=== PATIENT | male | born 1955 | race Caucasian/White ===

== ENCOUNTER 2017-01-19 12:15 | Inpatient (IN) ==
[~2017-01-19 12:15] MED LIST: ASPIRIN PO STA; NITROGLYCERIN SL PRN
--- NOTE | 2017-01-19 12:34 | PROVIDER DOCUMENTATION ---
HPI-Respiratory General - General Stated Complaint: SOB, LUNG PAIN Time Seen by Provider: 01/19/17 12:24 Source: patient, EMS Allergies/Adverse Reactions: Patient Allergies Allergy/AdvReac Type Severity Reaction Status Date / Time codeine AdvReac Unknown Verified 01/19/17 13:19 Home Medications: Home Medication List Medication Instructions Recorded Confirmed Last Taken Type Eszopiclone [Lunesta] 2 mg PO DAILY 01/19/17 01/19/17 01/18/17 21:00 History - History of Present Illness-Resp Nature of Presenting Problem: Pt is a 61 yom who came to the ED via EMS with a cc of SOB and weakness. 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 Pt reports he has had a cold/coughing since Tuesday. pt reports today he got worse. Pt was dizzy and weak so he pulled over. Quality of Pain: reports: tightness Severity in ED: reports: mild Onset/Duration: reports: just prior to arrival Timing: reports: still present Exposure: reports: unknown cause Cough Quality/Degree: reports: mild Modifying Factors: improves with: coughing, oxygen Associated Symptoms: reports: cough, shortness of breath, short of breath Similar Symptoms Previously?: No Recently seen or treated by another doctor?: No Review of Systems - Adult - REVIEW OF SYSTEMS - ADULT Constitutional: denies: chills, fever Eyes: reports: no symptoms reported Ears, Nose, Mouth & Throat: reports: no symptoms reported Cardiovascular: reports: chest pain. denies: heart murmur, orthopnea Respiratory: reports: cough, shortness of breath, wheezing. denies: dyspnea on exertion, hemoptysis Gastrointestinal: denies: diarrhea, nausea, vomiting Genitourinary: reports: no symptoms reported Musculoskeletal: reports: no symptoms reported Integumentary: reports: no symptoms reported Neurological: reports: no symptoms reported Psychiatric: reports: no symptoms reported Endocrine: reports: no symptoms reported Hematologic/Lymphatic: reports: no symptoms reported Allergic/Immunologic: reports: no symptoms reported All Other Systems: Reviewed and Negative Past History - Adult - PAST MEDICAL HISTORY-ADULT Review of Records: reports: Old Records Reviewed, Nursing Assessment Review Major Childhood Illnesses: reports: denies history Cardiovascular: reports: denies history Respiratory: reports: denies history Gastrointestinal: reports: denies history Obstetrical/Gynecological: reports: denies history Genitourinary: reports: denies history Musculoskeletal: reports: denies history Neurological: reports: denies history Endocrine/Immune: reports: denies history Other Conditions: reports: denies history - IMMUNIZATION STATUS Childhood Immunizations: See Nurse Assessment Flu Vaccine: See Nurse Assessment - FAMILY HISTORY Family History: reviewed, not pertinent Physical Exam-General - PHYSICAL EXAM-ADULT Initial Vital Signs Reviewed: Yes - CONSTITUTIONAL General Appearance: alert, mild distress, anxious - EYES Eyes: PERRL/EOMI, pink conjunctivae - HEAD, EARS, NOSE, MOUTH & THROAT HENMT: normocephalic/atraumatic, moist mucous membranes, normal ENT inspection - NECK Neck: non-tender - RESPIRATORY Respiratory: rhonchi (right side), wheezing (left) - CARDIOVASCULAR Cardiovascular: tachycardia Progress - PLAN OF CARE/RESULTS Progress/Plan/Lab Results: Orders Category Date Time Status Cardiac Monitoring DIRECTED Care 01/19/17 12:15 Active Saline Loc NOW Care 01/19/17 12:15 Active CHEST-PORTABLE [RAD] Stat Exams 01/19/17 12:16 Ordered CBC WITH ELECTRONIC DIFF [HEME] Stat Lab 01/19/17 12:15 Uncollected CK PROFILE [SP CHEM] Stat Lab 01/19/17 12:15 Uncollected COMPREHENSIVE METABOLIC PANEL [CHEM] Stat Lab 01/19/17 12:15 Uncollected D-DIMER [CHEM] Stat Lab 01/19/17 12:15 Uncollected MAGNESIUM [CHEM] Stat Lab 01/19/17 12:15 Uncollected PRO B-NATRIURETIC PEPTIDE Stat Lab 01/19/17 12:15 Uncollected PROTIME WITH INR [COAG] Stat Lab 01/19/17 12:15 Uncollected PTT [COAG] Stat Lab 01/19/17 12:15 Uncollected TROPONIN T Stat Lab 01/19/17 12:15 Uncollected Aspirin Med 01/19/17 12:15 Discontinued 325 mg PO STAT STA Nitroglycerin Sl [Nitroglycerin] Med 01/19/17 12:15 Active 0.4 mg SL Q5M PRN PRN EKG [EKG] Stat Ther 01/19/17 12:15 Ordered Vital Signs - 24 hr 01/19/17 12:26 Temperature 98.6 F Pulse Rate 117 H Respiratory 32 H Rate Blood Pressure 134/101 O2 Sat by Pulse 99 Oximetry Laboratory Tests 01/19/17 01/19/17 01/19/17 11:44 12:17 12:17 WBC 5.44 RBC 4.83 Hgb 15.9 Hct 45.9 MCV 95.0 MCH 32.9 H MCHC 34.6 RDW Std Deviation 13.9 Plt Count 135 MPV 10.2 Immature Gran % (Auto) 0.0 Neut % (Auto) 62.5 Lymph % (Auto) 21.5 [place] % (Auto) 15.1 H Eos % (Auto) 0.7 Baso % (Auto) 0.2 Immature Gran # (Auto) 0.00 Neut # (Auto) 3.40 Lymph # (Auto) 1.17 L [place] # (Auto) 0.82 H Eos # (Auto) 0.04 Baso # (Auto) 0.01 Sodium 139 Potassium 3.6 Chloride 102 Carbon Dioxide 19 L Anion Gap 18 BUN 14 POC Venous BUN 16 Creatinine 0.8 POC Venous Creatinine 0.8 Estimated GFR/1.73 m2 > 60 BUN/Creatinine Ratio 18 Glucose 130 H Calculated Osmolality 280 Calcium 8.9 Magnesium 1.5 Total Bilirubin 0.67 AST 65 H ALT 29 Alkaline Phosphatase 46 Creatine Kinase 170 Total Protein 6.8 Albumin 3.8 Globulin 3.0 Albumin/Globulin Ratio 1.3 - REASSESSMENT Reassessment #1 Time Reassessed: 13:00 (heart rate after CT was 110. After using the restroom without oxygen his O2 sat when down to 90%) Reassessment #2 Time Reassessed: 13:06 (pt has a maclure rash on back, flushed face, tachycardia , mild distress.) - EKG 1 Time of EKG reading by physician:: 12:07 EKG Read and Signed by:: Romeo Verma EKG Interpretation (*Must complete 3 of following elements*): Abnormal Rate: 116 (left anterior fascicular block ) Rhythm: sinus tachycardia - XRAY 1 XRAY Study: Chest XRAY Interpretation: COPD changes - CT/MRI 1 CT Study: Angiogram (negative exam) - CONSULTS/PCP/HOSPITALIST Notification #1 *Consult/PCP/Hospitalist*: Dr. Marie Time Discussed: 13:54 Consult Disposition: Admit Departure - Departure Time of Disposition Order: 15:56 DIAGNOSIS: SOB (shortness of breath), HTN (hypertension) with goal to be determined Hyperactive airway disease Qualifiers: Asthma severity: unspecified severity Asthma complication type: uncomplicated Qualified Code(s): J45.909 - Unspecified asthma, uncomplicated Disposition: ADMITTED INPATIENT 09 Certified Medical Emergency: Emergent Condition: Stable Attestation - Scribe Verification/Attestation Scribe:: Alee Du Acting as Scribe for:: Romeo Verma Scribe documention review:: This chart was documented by a scribe and accurately reflects the service the provider performed and the decisions made by the provider.
[2017-01-19 12:44] LABS: MANUAL DIFF NEEDED? NO
[2017-01-19 12:50] LABS: BASO% 0.2 % (0.0-0.8); EOS# 0.04 X1000 (0.0-0.7); EOS% 0.7 % (0.0-10.0); HEMATOCRIT 45.9 % (42.0-52.0); HEMOGLOBIN 15.9 g/dL (14.0-18.0); LYMPH# 1.17 X1000 (1.2-3.4); LYMPH% 21.5 % (20.5-51.1); MCH 32.9 PG (27-31); MCHC 34.6 g/dL (33-37); MONO# 0.82 X1000 (0.11-0.59); MONO% 15.1 % (1.7-9.3); MPV 10.2 FL (7.4-10.4); NEUT% 62.5 % (42.2-75.2); PLT 135 X1000 (130-400); RBC 4.83 XMIL (4.7-6.1)
[2017-01-19 12:59] LABS: AGAP 18; ALBUMIN 3.8 g/dL (3.5-5.0); ALKALINE PHOSPHATASE 46 U/L (32-122); BUN 14 mg/dL (8-22); CALCIUM 8.9 mg/dL (8.8-10.2); CHLORIDE 102 mmol/L (98-107); CK PROFILE 170 U/L (24-204); COSMO 280; GOT 65 U/L (10-34); GPT 29 U/L (10-44); MAGNESIUM 1.5 mg/dL (1.5-2.7); POTASSIUM 3.6 mmol/L (3.5-5.1); SODIUM 139 mmol/L (136-145); TCO2 19 mmol/L (25-35); TOTAL BILIRUBIN 0.67 mg/dL (0.20-1.00); TOTAL PROTEIN 6.8 g/dL (6.3-8.3)
[2017-01-19 13:07] LABS: INR 0.96
[2017-01-19] MEDS ORDERED: ROCEPHIN 1 GM/NS 50 ML IV ONE (13:07)
[2017-01-19] MEDS ORDERED: SOLU-MEDROL IV ONE (13:07)
--- NOTE | 2017-01-19 13:33 | Diag Imaging Result Document ---
PROCEDURE NAME: ANGIOGRAM/PULMONARY ARTERIES - 01/19/2017 CT PULMONARY ANGIOGRAM WITH INTRAVENOUS CONTRAST: A CT dose reduction protocol was used. COMPARISON: None. FINDINGS: Axial CT images of the chest were obtained after administering intravenous contrast. Coronal MIP images were generated. There is no pulmonary embolism. Heart and great vessels are normal. No adenopathy. There is some plate-like atelectasis in the lung bases , otherwise the lungs are clear. Airways are patent. Bony structures are intact. IMPRESSION: Negative exam. [facility]
[2017-01-19] MEDS ORDERED: NORCO-7.5 PO ONE (13:34)
[2017-01-19] MEDS ORDERED: LASIX IV ONE (13:35)
[2017-01-19] MEDS ORDERED: BENADRYL IV ONE (13:53)
--- NOTE | 2017-01-19 14:15 | Diag Imaging Result Document ---
PROCEDURE NAME: CHEST-PORTABLE - 01/19/2017 PORTABLE CHEST X-RAY: COMPARISON: None. FINDINGS: The lungs are normally expanded and clear. Heart size and mediastinal contours are normal. No pneumothorax or pleural effusion. IMPRESSION: Negative exam.
[2017-01-19 14:18] LABS: ALLEN TEST YES; BE 0.1 mmoll (-3.0-3.0); BLOOD TYPE ARTERIAL; DRAW SITE R RADIAL; METHB 1.5 % (0.0-1.5); O2(CT) 21.8 mL/dL (15.0-23.0); PCO2(98.6) 26 mmHg (35-45); PO2(98.6) 78 mmHg (60-100); SAMPLE BLOOD; SAO2 99.2 % (95.0-100.0); THB 16.2 g/dL (11.5-17.4); pH(98.6) 7.52 (7.35-7.45)
[2017-01-19 14:20] LABS: MODALITY ROOM AIR
[2017-01-19] MEDS ORDERED: DUONEB (A & A) INH PRN (16:19)
[2017-01-19] MEDS ORDERED: NS 1,000 ML IV SCH (16:19)
--- NOTE | 2017-01-19 16:48 | HISTORY AND PHYSICAL ---
PRIMARY CARE PROVIDER: Dr. Wells in [place]. CHIEF COMPLAINT: Shortness of breath and weakness. HISTORY OF PRESENT ILLNESS: Mr. Fountain is a pleasant, 61-year-old male with no real medical history with the exception that he was admitted to [facility] [place] last month for severe pneumonia, at which time he was placed in the ICU, but was not intubated. He states since that time he has been having no real resolution in his cough and mild shortness of breath. 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 Then, he stopped at a clinic here in [place]. He was noted to be hypoxic and was sent here. He denies any chest pain, no recent fevers, no lower extremity edema. No orthopnea. He has had no overt chills. No expectoration with his cough. When he got to the ER, labs and diagnostics were done, and they were found to be unremarkable. A chest x-ray and CTA were also done, and no acute findings were found. On physical exam, he does have some wheezing, but no overt increased work of breathing. We are now going to admit him for further treatment and evaluation. PAST MEDICAL HISTORY: Recent admission for severe pneumonia at [place], [place]. Otherwise, no medical history. SURGICAL HISTORY: He has had inguinal hernia repair, left knee arthroscopy, UV 3 surgery for sleep apnea. 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 He is . He has a remote history of tobacco, alcohol, and drug use, but he no longer uses any of those substances. FAMILY HISTORY: Mother is still alive. She has a history of chronic respiratory illnesses and chronic back pain. Father from unknown causes. REVIEW OF SYSTEMS: A 14 point review of systems obtained and found to be negative with the exception of the HPI. ALLERGIES: Codeine. HOME MEDICATIONS: Lunesta 2 mg at night. PHYSICAL EXAMINATION: VITAL SIGNS: Blood pressure is 144/107, heart rate is 109, respiratory rate 21 and O2 saturation 97% on room air. Temperature is 98.6 degrees. GENERAL: This is a well-developed, well-nourished, male, lying in hospital bed in no acute distress. NEUROLOGIC: The patient is awake, alert, oriented. Follows commands without focal deficits. HEENT: Head is atraumatic and normocephalic. Pupils equal, round, reactive to light. Oral mucosa moist. NECK: Trachea midline. No JVD or carotid bruits. CHEST: Diminished at the bases with expiratory wheezes bilaterally. CV: Regular rate and rhythm. S1 and S2 is noted. No murmurs, gallops, clicks , or rubs. GI: Soft, nondistended, and nontender. Bowel sounds are positive. EXTREMITIES: Without edema, clubbing or cyanosis. Pulses are palpable bilaterally. DIAGNOSTIC DATA: Chest x-ray negative. CTA of the chest negative. WBC 5.44, hemoglobin 15.9, hematocrit 45.9, platelet count 135. PT 10.0, INR 0.96. ABG on room air reveals pH 7.52, PCO2 26, O2 78, bicarbonate 24.9. Sodium 139, potassium 3.6, chloride 102, CO2 19, anion gap 18. BUN 14, creatinine 0.8, glucose 130. AST 65, ALT 29, alkaline phosphatase 46. Troponin negative. ProBNP 53. ASSESSMENT AND PLAN: 1. Acute respiratory failure: At this time diagnosis is acute bronchitis. We will treat him with Zithromax and Rocephin, breathing treatments and intravenous steroids. We will take another chest x-ray and laboratories in the morning. We will add oxygen as needed, Tessalon Perles during the day, and light doses of codeine cough syrup at night. 2. Elevated D-dimer: Computed tomography angiography of the chest was negative for pulmonary embolus. Bilateral venous Dopplers have been obtained and are pending. 3. Will obtain records from [facility] [place] regarding his admission last month for pneumonia. 4. Deep vein thrombosis prophylaxis provided with Lovenox. Further recommendations to follow. Dictated by ISATU Mckinnon for Brett Marie MD Seen and examined patient. I have reviewed his labs and Imagining studies. I agree with the above evaluation Ass: 1- Subacute to chronic cough: etiology not apparently clear. CTA was unremarkable. I think there could be some element of allergic component. will get pulmonary medicine on board and continue with the plan outline above 2-Sinusitis. MTDD
[2017-01-19] MEDS: TESSALON PO PRN (16:50)
[2017-01-19 16:53] LABS: HEMOGLOBIN A1C 4.9 % (4.8-6.0)
[2017-01-19 17:14] LABS: FREE T4 1.08 ng/dL (0.93-1.70)
[2017-01-19] MEDS: DUONEB (A & A) INH SCH ×3 (17:51→23:11)
[2017-01-19] MEDS ORDERED: ZITHROMAX 500 MG/NS 250 ML IV SCH (18:00)
[2017-01-19] MEDS ORDERED: SOLU-MEDROL IV SCH (21:00)
[2017-01-19] MEDS ORDERED: AMBIEN PO SCH (21:00)
[2017-01-19] MEDS ORDERED: PREDNISONE PO ONE (22:13)
[2017-01-19] MEDS ORDERED: TUSSIONEX LIQUID PO ONE (22:15)
[2017-01-19] MEDS: SYMBICORT 160/4.5 MICROGM INHALER INH SCH (23:10)
[2017-01-20] MEDS: DUONEB (A & A) INH SCH ×3 (03:40→11:20)
--- NOTE | 2017-01-20 04:27 | CONSULTATION ---
DATE OF CONSULTATION: 01/19/2017 REQUESTING PHYSICIAN: Brett Marie MD REASON FOR CONSULTATION: Chronic cough. HISTORY OF PRESENT ILLNESS: Mr. Fountain is a 61-year-old white male, who smoked for approximately 15 years (he reported he smoked 1-2 cigarettes per day), who was admitted to an outside hospital approximately 1 month ago with a diagnosis of an atypical pneumonia. He did require 2 days in the intensive care unit before transferring to the floor. He did not require intubation or mechanical ventilation. 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 With the cough, he developed dyspnea and became flushed. He was brought to the emergency room by EMS. He was hypertensive and tachycardic upon presentation. He had a slight elevation in a D-dimer. Chest x-ray was performed which revealed no acute infiltrates. He underwent a CT pulmonary angiogram which revealed no definite pulmonary embolism, although the contrast timing was not perfect. He had minimal atelectasis in the bases but no significant pneumonia. The patient denies history of asthma. He does report approximately 5 years ago, he had severe seasonal allergies in the spring and the fall. He underwent allergy testing and was allergic to pine trees, elms, mold, ragweed, as well as others he cannot recall. He also reports significant difficulty with Mejia pear blooming. He is not aware that he is allergic to any animal dander. He has 2 dogs but no other pets. He does not have birds. He does not have any unusual hobbies. He had a slight increase in anion gap upon presentation. He denies taking aspirin or Tylenol. PAST MEDICAL HISTORY/PROBLEM LIST: 1. Recent pneumonia requiring hospitalization as per above. 2. Multiple environmental allergens as outlined above. 3. Status post UPPP or sleep apnea. 4. Status post left knee arthroscopy. 5. Status post inguinal hernia repair. SOCIAL HISTORY: Remote tobacco use as per above. Alcohol, "a couple of days." REVIEW OF SYSTEMS: Negative except as noted in the HPI. PHYSICAL EXAMINATION: General: Reveals a well-developed, well-nourished, white male, resting comfortably in his bed and in no distress. Vital Signs: BP 149/69, heart rate 106, respiratory rate 16, oxygen saturation 98% on room air. HEENT: Pupils are equal and reactive. Oropharynx is clear. Uvula is missing. Neck: Supple. Chest: Reveals expiratory wheeze on forced exhalation. This also elicits a cough. Cardiac: Increased rate. Regular rhythm. Abdomen: Soft without hepatosplenomegaly. Extremities: Without edema. LABORATORIES: Arterial blood gas on room air. PH 7.52, pCO2 of 26, PO2 of 78 with a normal lactate. Chemistries: Sodium 139, potassium 3.6, chloride 102, bicarbonate 19, BUN 14, creatinine 0.8, anion gap is elevated at 18. White blood count 5.44, hemoglobin 15.9, platelet count 135,000. IMPRESSION: A 61-year-old with wheezing, bronchospasm, intractable cough, and dizziness. The patient has multiple allergens including both elm trees and Mejia pears. Both of these trees are currently blooming in the [facility]. He is having an asthma exacerbation or an asthma- like exacerbation which led to the coughing episode and subsequent symptoms of lightheadedness/dizziness, dyspnea, flushing, and hypertension. What is not clear is does he have asthma or is this a remnant of his recent pneumonia leading to a reactive airways-like process. Regardless of the etiology, initial treatment recommendations will be the same. It is recommended that he follow up with his primary care physician or a valuation consultant when he returns home. His underlying illness will be defined over time. If the patient has significant reversibility to bronchodilators 6 months or 12 months from now, then he is more likely to have an underlying asthma. RECOMMENDATIONS: 1. Initiate a 14-day steroid taper. He will be given 40 mg of prednisone today and then begin a taper over 2 weeks beginning at 20 mg per day. 2. Initiate an inhaled corticosteroid/long-acting beta agonist combination. 3. Please discharge the patient on an albuterol rescue inhaler. 4. Cough suppressant this evening, so that he will get a good night's sleep. 5. Recommend followup with his primary care physician and/or a valuation consultant as outlined above. 6. The patient has an increased anion gap metabolic acidosis on his chemistries. He has no discernable reason for this abnormality and I suspect that it represents a lab error. Recommend repeating chemistries tomorrow as you have scheduled. 7. If patient is doing well, he can be discharged tomorrow morning.
[2017-01-20] MEDS ORDERED: PRILOSEC PO SCH (07:00)
[2017-01-20 07:15] LABS: HEMATOCRIT 43.6 % (42.0-52.0); HEMOGLOBIN 15.1 g/dL (14.0-18.0); MCH 33.5 PG (27-31); MCHC 34.6 g/dL (33-37); MCV 96.7 FL (81-99); MPV 10.2 FL (7.4-10.4); RBC 4.51 XMIL (4.7-6.1)
[2017-01-20 07:49] LABS: AGAP 18; BUN 10 mg/dL (8-22); CALCIUM 8.6 mg/dL (8.8-10.2); CHLORIDE 98 mmol/L (98-107); COSMO 283; POTASSIUM 3.3 mmol/L (3.5-5.1); SODIUM 139 mmol/L (136-145); TCO2 23 mmol/L (25-35)
[2017-01-20] MEDS ORDERED: KLOR-CON PO ONE (08:13)
[2017-01-20 09:00] VITALS: BP 150/79
[2017-01-20] MEDS ORDERED: LOVENOX SUBQ SCH (09:00)
[2017-01-20] MEDS ORDERED: PREDNISONE PO SCH (09:00)
[2017-01-20] MEDS: ZYRTEC PO SCH ×2 (09:21→09:25)
--- NOTE | 2017-01-20 09:25 | Diag Imaging Result Document ---
PROCEDURE NAME: CHEST-2 VIEWS - 01/20/2017 PA AND LATERAL RADIOGRAPH OF THE CHEST: COMPARISON: 01/19/2017. FINDINGS: The lungs are grossly clear. There is no discrete pleural fluid collection or evidence of pneumothorax. The cardiomediastinal silhouette and upper airway are grossly unremarkable. IMPRESSION: No evidence of acute chest pathology.
[2017-01-20] MEDS: SYMBICORT 160/4.5 MICROGM INHALER INH SCH (11:19)
[2017-01-20] MEDS: TESSALON PO PRN (11:32)
[2017-01-20] MEDS ORDERED: VENTOLIN HFA INH PRN (12:43)
[2017-01-20] MEDS ORDERED: ROBITUSSIN-DM PO PRN (12:45)
[2017-01-20] MEDS ORDERED: ROCEPHIN 1 GM/NS 50 ML IV SCH (14:00)
[2017-01-20] MEDS ORDERED: DOXYCYCLINE PO SCH (21:00)
--- NOTE | 2017-01-21 12:16 | DISCHARGE SUMMARY ---
ADMISSION DATE: 01/19/2017 DISCHARGE DATE: 01/20/2017 DISPOSITION: Home. FOLLOWUP: Will be with patient's PCP, Dr. Marin. CONSULTATION DURING THIS ADMISSION: Pulmonary Medicine was consulted. Patient was seen by Dr. Marin. INVASIVE PROCEDURES DONE: None. IMAGING STUDIES OF SIGNIFICANCE: A CT of the lungs was done, which showed some plate-like atelectasis in lung bases. Otherwise, lungs are clear. ADMISSION DIAGNOSES: 1. Chronic cough, etiology unclear. 2. Sinusitis. 3. Acute respiratory failure. DISCHARGE DIAGNOSES: 1. Acute hypoxemic respiratory failure. 2. Subacute to chronic cough, likely secondary to underlying allergy and hyperreactive airway. 3. Recurrent chronic sinusitis. 4. Recently treated atypical pneumonia. DISCHARGE MEDICATIONS: 1. Symbicort 2 puffs b.i.d. 2. Cetirizine 10 mg daily. 3. Doxycycline 100 mg b.i.d. 4. Mucinex. 5. Omeprazole 40 mg daily. 6. Prednisone 20 mg daily for 5 days, to taper. 7. Albuterol 2 puffs q.6 p.r.n. PRESENTING COMPLAINT: Shortness of breath and weakness. HISTORY OF PRESENTING COMPLAINT: Mr. Fountian is a 61-year-old male who has been battling with on-and-off cough and some wheezing for the past 1 month. Patient refers to having even been admitted to [facility] about 2 weeks ago and was treated for atypical pneumonia. However, subsequently he has been having this persistent cough and occasional wheezing. Patient was admitted for further medical care. HOSPITAL COURSE: The patient was admitted, was started on IV antibiotics, was nebulized, was started on steroids, and was evaluated by Pulmonary Medicine. Dr. Marin saw the patient and thinks there could be a possible allergy component to this, and he recommends patient be started on asthma-like therapy and follow up with him. Today, patient refers to be doing a little better. Coughing has slightly subsided. His vitals are pretty under control. Physical examination is unremarkable. Still has a little bit of bilateral faint wheezing, but remarkably improved. PLAN: Patient will therefore be discharged in very stable condition to follow up with Dr. Marin and also with his primary care physician. TIME SPENT FOR DISCHARGE: Thirty-five minutes.
== END 2017-01-20 13:47 | disposition home or self-care (01) | DRG 152 ==
LOC: EDBD → ED 12:15 → 3N 14:47
PROVIDERS: ATTEND Internal Medicine
DX: J30.2 Other seasonal allergic rhinitis (principal); J96.01 Acute respiratory failure with hypoxia; J98.11 Atelectasis; J32.9 Chronic sinusitis, unspecified; Z87.891 Personal history of nicotine dependence; R79.1 Abnormal coagulation profile; Z79.899 Other long term (current) drug therapy
CPT/HCPCS: 71010; 71020; 71275; 80048; 80053; 82550; 82565; 82607; 82746; 82805; 83036; 83735; 83880; 84439; 84443; 84484; 84520; 85025; 85027; 85379; 85610; 85730; 87081; 87430; 87804; 93970; 94640; 94761; 96365; 96375; J0456; J0696; J1200; J1650; J1940; J2930; J7030; J7512; Q9967